=== PATIENT | male | born 1950 | race Caucasian/White ===

== ENCOUNTER 2017-11-23 10:15 | Inpatient (IN) | payer MEDICARE, BC ==
[2017-11-23 10:41] LABS: #Eosinphils 0.1 thou/uL (0.0-0.7); #Lymphocytes 1.9 thou/uL (1.20-3.40); #Monocytes 0.5 thou/uL (0.11-0.59); #Neutrophils 5.3 thou/uL (1.40-6.50); %Basophils 0.1 % (0.0-1.0); %Eosinophils 1.3 % (0.0-10.0); %Lymphocytes 24.2 % (21.0-51.0); %Monocytes 6.9 % (0.0-10.0); %Neutrophils 67.5 % (42.0-75.0); Hemoglobin 15.4 g/dL (14.0-18.0); Mean Corpuscular HGB CONC 33.9 g/dL (32.0-36.0); Mean Corpuscular Hemoglobin 29.3 pg (27.0-31.0); Mean Corpuscular Volume 86.3 fl (80.0-94.0); Platelet Count 183 thou/uL (130-400); RBC Distribution Width 13.1 % (11.5-14.5); Red Blood Cell (RBC) Count 5.27 mill/uL (4.70-6.10); White Blood Cell (WBC) Count 7.8 thou/uL (4.8-10.8)
[2017-11-23 10:47] LABS: INR-International Normal Ratio 1.1; Prothrombin Time 14.8 SEC (12.0-14.7)
[2017-11-23 10:48] LABS: PTT 38.1 SEC (22.9-36.1)
[2017-11-23 11:03] LABS: ALT (SGPT) 39 U/L (8-55); AST (SGOT) 30 U/L (5-34); Albumin 4.3 g/dL (3.4-4.8); Alkaline Phosphatase 80 U/L (40-150); Anion Gap 12 mmol/L (10-20); BUN (Urea Nitrogen) 15 mg/dL (8.4-25.7); Bilirubin, Total 0.5 mg/dL (0.2-1.2); CK (CPK) 223 U/L (30-200); Calc. Creatinine Clearance 0 mL/min (70-130); Calcium 9.4 mg/dL (7.8-10.44); Carbon Dioxide 23 mmol/L (23-31); Chloride 108 mmol/L (98-107); Estimated GFR-MDRD Greater than 90; Globulin 3.5 g/dL (2.4-3.5); Glucose 116 mg/dL (80-115); Protein, Total 7.8 g/dL (5.8-8.1); Sodium 139 mmol/L (136-145)
[2017-11-23 11:08] LABS: CKMB 2.5 ng/mL (0-6.6); Troponin I Less than 0.010 ng/mL (< 0.028)
[2017-11-23] MEDS ORDERED: Metoprolol Tartrate 5 MG/5 ML VIAL ONE (11:29)
--- NOTE | 2017-11-23 11:50 | RAD ---
PORTABLE CHEST 1 VIEW: Date: 11/23/17 Time: 1115 hours HISTORY: Chest pain. FINDINGS: The heart size is normal. The lungs are expanded without focal areas of consolidation, pneumothorax, or pleural effusion. IMPRESSION: No radiographic evidence of acute cardiopulmonary process. POS: [facility]
--- NOTE | 2017-11-23 14:50 | PDOC.FPRHP ---
- History of Present Illness Chief Complaint: heart "flutter" History of Present Illness: 67 yo M w/ PMH of cad s/p stent x2, hld, htn and recently diagnosed atrial fibrillation presents to the ED for feeling of heart palpitations since this morning. He was recently started on eliquis 5mg BID and diltiazem 240mg ER for the a-fib and has been taking those medications as scheduled. Currently, he c/o heart palpitations, but denies cp, sob, nvdc, diaphoresis, headache, changes in vision, lightheadedness, fever and chills. He is visiting from [facility] with his and sees a PCP and fitness center attendant in that area. Last PO intake was 199911/22/2017. ED Course: Lopressor 5mg - Allergies/Adverse Reactions Allergies Allergy/AdvReac Type Severity Reaction Status Date / Time mirtazapine Allergy Verified 11/23/17 14:51 naproxen Allergy Verified 11/23/17 14:51 - Home Medications Medication Instructions Recorded Confirmed Type ALPRAZolam [ALPRAZolam] 11/23/17 History Apixaban [Eliquis] 5 mg PO BID 11/23/17 11/23/17 History Aspirin [Ecotrin] 81 mg PO DAILY 11/23/17 11/23/17 History Cholecalciferol (Vitamin D3) 1,000 unit PO DAILY 11/23/17 11/23/17 History [Vitamin D3] Diltiazem HCl [Diltiazem 24Hr Cd] 240 mg PO DAILY 11/23/17 11/23/17 History Escitalopram Oxalate [Lexapro] 20 mg PO DAILY 11/23/17 11/23/17 History Fenofibrate 160 mg PO DAILY 11/23/17 11/23/17 History Multivitamin [Multivitamins] 1 cap PO DAILY 11/23/17 11/23/17 History [place]-3 Fatty Acids/Fish Oil [Fish 1 cap PO DAILY 11/23/17 11/23/17 History Oil 1,000 mg Capsule] Omeprazole 20 mg PO DAILY 11/23/17 11/23/17 History Pravastatin Sodium [Pravachol] 40 mg PO HS 11/23/17 11/23/17 History traZODone HCl [Desyrel] 12.5 mg PO HS 11/23/17 11/23/17 History - History PMHx: a-fib, CAD s/p stents X2, htn, hld, GERD PSHx: b/l knee replacement, rt rotator cuff repair, b/l hernia repair, rt ear reconstruction FHx: CAD/TX in Dad and brother Social:Non-smoker, social drinker. - Review of Systems General: denies: fever/chills, fatigue Eyes: denies: eye pain, vision changes ENT: denies: nasal congestion, rhinorrhea Respiratory: denies: cough, congestion, shortness of breath Cardiovascular: reports: palpitation. denies: chest pain, edema, paroxysmal nocturnal dyspnea Gastrointestinal: denies: nausea, vomiting, diarrhea, constipation, abdominal pain Genitourinary: denies: dysuria, polyuria Skin: denies: rashes, jaundice Musculoskeletal: denies: pain, tenderness Neurological: reports: numbness. denies: syncope Psychological: denies: anxiety - Vital signs BP: 123/85 HR: 67-121 RR: 20 Tmax: 98.4 Pox: 95% on RA Wt: 110Kg - Physical Exam Constitutional: NAD HEENT: normocephalic and atraumatic, EOMI, conjunctiva clear, grossly normal vision Neck: trachea midline, no LAD, no JVD, no thyromegaly Chest: no-tender to palpation Heart: normal S1/S2, pulses present -Heart: regular rate, irregular rhythm Lungs: CTAB, no respiratory distress, good air movement, no rales/rhonchi, no wheezing, no retractions Abdomen: soft, non-tender, bowel sounds present, no masses/distention Musculoskeletal: normal tone, ROM grossly normal Neurological: no focal deficit Skin: no rash/lesions, capillary refill <2 seconds Heme/Lymphatic: no unusual bruising or bleeding, no purpura, no petechia Psychiatric: normal mood and affect FMR H&P: Results - Labs Result Diagrams: 11/23/17 10:30 11/23/17 10:30 Lab results: WBC 7.8 thou/uL (4.8-10.8) 11/23/17 10:30 Hgb 15.4 g/dL (14.0-18.0) 11/23/17 10:30 Hct 45.5 % (42.0-52.0) 11/23/17 10:30 MCV 86.3 fl (80.0-94.0) 11/23/17 10:30 Plt Count 183 thou/uL (130-400) 11/23/17 10:30 Neutrophils % 67.5 % (42.0-75.0) 11/23/17 10:30 Sodium 139 mmol/L (136-145) 11/23/17 10:30 Potassium 4.0 mmol/L (3.5-5.1) 11/23/17 10:30 Chloride 108 mmol/L (98-107) H 11/23/17 10:30 Carbon Dioxide 23 mmol/L (23-31) 11/23/17 10:30 BUN 15 mg/dL (8.4-25.7) 11/23/17 10:30 Creatinine 0.83 mg/dL (0.6-1.3) 11/23/17 10:30 Glucose 116 mg/dL (80-115) H 11/23/17 10:30 Calcium 9.4 mg/dL (7.8-10.44) 11/23/17 10:30 Total Bilirubin 0.5 mg/dL (0.2-1.2) 11/23/17 10:30 AST 30 U/L (5-34) 11/23/17 10:30 ALT 39 U/L (8-55) 11/23/17 10:30 Alkaline Phosphatase 80 U/L (40-150) 11/23/17 10:30 Creatine Kinase 223 U/L (30-200) H 11/23/17 10:30 CK-MB (CK-2) 2.5 ng/mL (0-6.6) 11/23/17 10:30 Serum Total Protein 7.8 g/dL (5.8-8.1) 11/23/17 10:30 Albumin 4.3 g/dL (3.4-4.8) 11/23/17 10:30 - EKG Interpretation EKG: a-fib with RVR; rate 121 - Radiology Interpretation Chest x-ray Status: report reviewed by me Additional comment: No acute cardiopulmonary disease FMR H&P: A/P - Problem List (1) Atrial fibrillation with RVR Current Visit: Yes Status: Acute Code(s): I48.91 - UNSPECIFIED ATRIAL FIBRILLATION (2) Coronary artery disease Current Visit: Yes Status: Acute Code(s): I25.10 - ATHSCL HEART DISEASE OF [place] CORONARY ARTERY W/O ANG PCTRS (3) HTN (hypertension) Current Visit: Yes Status: Acute Code(s): I10 - ESSENTIAL (PRIMARY) HYPERTENSION (4) HLD (hyperlipidemia) Current Visit: Yes Status: Acute Code(s): E78.5 - HYPERLIPIDEMIA, UNSPECIFIED (5) Anxiety and depression Current Visit: Yes Status: Acute Code(s): F41.9 - ANXIETY DISORDER, UNSPECIFIED; F32.9 - MAJOR DEPRESSIVE DISORDER, SINGLE EPISODE, UNSPECIFIED (6) Insomnia Current Visit: Yes Status: Acute Code(s): G47.00 - INSOMNIA, UNSPECIFIED - Plan 1) Afib w/ rvr: -currently the pts rate is well controlled in the 60s to 80s. He has not eaten since last night and the plan per the ER doc checkout was possible GARRY with cardioversion by cardiology. Will keep pt NPO for now and touch base with cards for recs and possible procedure timing. If procedure is tomorrow pt can have HH diet and made NPO at midnight. Until then, we will resume home medications in the AM and focus on rate control with ideal <85 bpm since pt is symptomatic. Esmolol if necessary for rate control. -pt will be admitted to telemetry w/ expected LOS >/= 2 days 2) HTN: Currently BP stable, monitor 3) HLD: Will be NPO, can resume meds once procedure timing is figured out 4) Anxiety/depression: Home meds 5) CAD: Aspirin statin pending above 6) Insomnia: trazadone qhs 7) PPX: Eliquis and omeprazole 8) Code status: Spoke with pt regarding code status and he wishes to be full code. Disposition/LOS: >/= 2 days. Stable. FMR H&P: Upper Level - Pertinent history 67 y/o M w/ PMHx of CAD s/p stent x2 and recent diagnosis of A-fib 3 weeks ago s /p spontaneous conversion presents to the ER for evaluation of palpitations. Pt reportedly diagnosed 3 weeks ago in [place] w/ plans for cardioversion, but converted upon standing up and using the urinal in the ER prior to the procedure. He was started on diltiazem at this time. Denies any CP/SOB/ lightheadedness/change in vision/syncope. Took his dilt this AM. Pt reportedly attempted to convert himself back to NS by performing deep breathing but was unable to have resolution of his sxs prompting ER visit. Pt states he has not eaten since 1999 last night. Pt states his sxs are much improved now that his heart rate is slower. Patient is a FULL CODE. This was discussed in detail with patient and his . Pt was given 5 mg IV Lopressor in the ER w/ improvement in his pulse from 130s to 80s. Dr. Ro of cardiology was consulted who recommended admission for cardioversion. - Pertinent findings EKG showing A-fib w/ RVR rate 121 bpm Cardiac: irregularly irregular rate/rhythm Othewise exam grossly WNL - Plan Date/Time: 11/23/17 1446 67 y/o M w/: 1. Atrial fibrillation with RVR, currently rate controlled -Will contact cardiology to see if patient can have GARRY and cardioversion later on this afternoon 2/2 already being NPO - Currently rate controlled s/p 5 mg IV Lopressor. Will plan to restart PO dilt he was previously discharged home on w/ esmolol gtt if needed for continued rate control - Cont. eliquis for anticoagulation 2.CAD s/p stent x2 - Cont. w/ ASA, CCB, and statin medication 3. HLD - Cont. w/ home pravastatin 4. Depression - Cont. w/ home lexapro 5. Insomnia - Cont. w/ home trazadone PRN 6. GERD - Cont. w/ home omeprazole IWilder, have evaluated this patient and agree with findings/plan as outlined by international travel consultant resident. Pertinent changes/additions are listed here. Attending Addendum - Attending Addendum Date/Time: 11/23/17 7227 I personally evaluated the patient and discussed the management with Dr. Dunaway I agree with the History, Examination, Assessment and Plan documented above with any addition or exceptions noted below- Briefly this is a 67 year old WF with h/o recently diagnosed a-fib. He states that he developed palpitations and was hospitalized in [place]. He converted to sinus rhythm and was started on eliquis and diltiazem after follow-up his fitness center attendant. Today he developed palpitations again and presented to the ER. Denies any CP, SOB, N/V. Currently feels better. PMH/PSH/ALL/Meds/SH reviewed and agree with resident's documentation. PE: Afebrile P99 BP 125/89 Exam repeated by me and agree with resident's documentation Labs: cardiac enzymes negative x 3 EKG a-fib A/P: A-Fib with RVR now rate controlled- continue current meds. Cardiology consulted and planning for GARRY in AM.
[2017-11-23] MEDS ORDERED: Ondansetron HCl/PF 4 MG/2 ML Vial IVP PRN (16:14)
[2017-11-23] MEDS ORDERED: Ondansetron ODT 4 MG TAB PO PRN (16:14)
[2017-11-23] MEDS ORDERED: Acetaminophen 325 MG TAB PO PRN (16:14)
[2017-11-23 16:51] VITALS: BMI 34.2
--- NOTE | 2017-11-23 17:58 | CON ---
DATE OF CONSULTATION: 11/23/2017 REASON FOR CONSULTATION: Atrial fibrillation, rapid ventricular response. HISTORY OF PRESENT ILLNESS: Mr. San is a pleasant 67-year-old white gentleman [facility]. He was seen in the ER and found to have atrial fibrillation and RVR and he w as admitted for this. He has a history of atrial fibrillation. Three weeks ago, he went into atrial fibrillation and had to go to the ER as he becomes very symptomatic when he is in atrial fibrillatio n. During his ER stay, he converted back to sinus rhythm on his own. 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 He was started on diltiazem 240 mg a day at his cardiologis t visit for paroxysmal atrial fibrillation and kept on the Eliquis. He is actually seen by cardiolog ist in [facility] where he has lived for several years now secondary to having had an KS back in 2003. He had 2 stents placed at that time, he has followed up with him every year. He has had several stress tests and several echocardiograms that have shown normal LV function and he has never had a repeat c atheterization. He was placed in the telemetry floor and he has remained in atrial fibrillation, hea rt rate in the 60s-70s after an IV dose of metoprolol. Currently, he is not feeling as bad as he was before, but he continues to feel the fluttering of his chest. PAST MEDICAL HISTORY: 1. Atrial fibrillation diagnosed 3 weeks ago. 2. Coronary artery disease status post stents x2 back in 2003 in the setting of myocardial infarctio n. 3. Hypertension. 4. Hyperlipidemia. 5. Gastroesophageal reflux disease. PAST SURGICAL HISTORY: 1. Bilateral knees replaced. 2. Right rotator cuff repair. 3. Bilateral hernia repair. 4. Right ear reconstruction. FAMILY HISTORY: Coronary artery disease, [place] in both father and brother. SOCIAL HISTORY: No alcohol, tobacco or drugs. REVIEW OF SYSTEMS: A 12-point review of systems was done and is otherwise negative unless stated in history of present illness. TRANSFER MEDICATIONS: 1. Vitamin D3. 2. Multivitamin daily. 3. [place] 3 fish oil. 4. Omeprazole. 5. Diltiazem 240 mg a day. 6. Fenofibrate 150 mg a day. 7. Lexapro 20 mg a day. 8. Eliquis 5 mg p.o. b.i.d. 9. Trazodone 12.5 mg at bedtime. 10. Pravastatin 40 mg at bedtime. 11. Aspirin 81 a day. 12. Alprazolam p.r.n. ALLERGIES: MIRTAZAPINE and NAPROXEN. PHYSICAL EXAMINATION: VITAL SIGNS: Temperature 98.1, pulse 99, respiration rate 16, satting 95% on room air, blood pressur e 125/72. GENERAL: Awake, alert, oriented x3, in no distress. HEENT: Normocephalic, atraumatic. NECK: Supple. LUNGS: Lungs are clear. CARDIOVASCULAR: Irregularly irregular heart rate in the 70s. S1, S2, no S3 or S4, no murmurs or rub s. ABDOMEN: Soft, positive bowel sounds. EXTREMITIES: No edema. SKIN: Warm and dry. LABORATORY WORK: Reviewed. CBC was unremarkable. Coags were unremarkable. Chemistries were unrema rkable. GFR greater than 90. Troponin is negative x2. CK-MB is normal x1. Albumin of 4.3. EKG was reviewed, AFib, RVR. Telemetry was reviewed. Currently, still in atrial fibrillation, but rate controlled in the 70s-80s. Chest x-ray shows no acute cardiopulmonary issues. ASSESSMENT AND PLAN: 1. Atrial fibrillation and rapid ventricular response. 2. Coronary artery disease, stable. No acute coronary syndrome. 3. Hypertension. 4. Hyperlipidemia. PLAN: 1. We will start Multaq. There is an interaction with possible QT prolongation with escitalopram an d trazadone and so we will stop trazodone for now. Hopefully, he will be able to be off without issu es. We will plan on continuing Eliquis and plan on doing a GARRY cardioversion tomorrow morning if he remains in atrial fibrillation. 2. Echocardiogram to be done. 3. GARRY cardioversion tomorrow as long as he remains in atrial fibrillation. I explained to him at [facility] about the risks and benefits of the procedure and he agrees to proceed. Further recommendations per results of echocardiogram and further telemetry monitoring. We will follow up in the morning. Thank you for letting us to participate in the care of your patient.
[2017-11-23] MEDS ORDERED: Dronedarone HCl 400 MG TAB PO SCH (18:00)
[2017-11-23 18:22] LABS: Troponin I Less than 0.010 ng/mL (< 0.028)
[2017-11-23] MEDS: Apixaban 5 MG TAB PO SCH (20:28)
[2017-11-23] MEDS ORDERED: traZODone HCl 50 MG TAB PO SCH (21:00)
[2017-11-23] MEDS ORDERED: Atorvastatin Calcium 10 MG TAB PO SCH (21:00)
[2017-11-24 05:46] LABS: #Basophils 0.1 thou/uL (0.0-0.2); #Eosinphils 0.1 thou/uL (0.0-0.7); #Lymphocytes 2.1 thou/uL (1.20-3.40); #Monocytes 0.5 thou/uL (0.11-0.59); #Neutrophils 3.6 thou/uL (1.40-6.50); %Basophils 1.1 % (0.0-1.0); %Eosinophils 2.2 % (0.0-10.0); %Lymphocytes 32.5 % (21.0-51.0); %Neutrophils 56.1 % (42.0-75.0); Mean Corpuscular HGB CONC 33.2 g/dL (32.0-36.0); Mean Corpuscular Hemoglobin 28.8 pg (27.0-31.0); Mean Corpuscular Volume 86.9 fl (80.0-94.0); Mean Platelet Volume 7.2 fL (7.4-10.4); Platelet Count 193 thou/uL (130-400); RBC Distribution Width 13.1 % (11.5-14.5); White Blood Cell (WBC) Count 6.5 thou/uL (4.8-10.8)
[2017-11-24 05:53] LABS: Anion Gap 13 mmol/L (10-20); BUN (Urea Nitrogen) 14 mg/dL (8.4-25.7); Calc. Creatinine Clearance 131 mL/min (70-130); Calcium 9.1 mg/dL (7.8-10.44); Carbon Dioxide 22 mmol/L (23-31); Chloride 105 mmol/L (98-107); Estimated GFR-MDRD Greater than 90; Glucose 94 mg/dL (80-115); Potassium 3.8 mmol/L (3.5-5.1); Sodium 136 mmol/L (136-145)
[2017-11-24] MEDS ORDERED: Dronedarone HCl 400 MG TAB PO SCH (08:00)
[2017-11-24] MEDS ORDERED: Escitalopram Oxalate 20 mg Tablet PO SCH (09:00)
[2017-11-24] MEDS ORDERED: Fenofibrate Nanocrystallized 145 MG TAB PO SCH (09:00)
--- NOTE | 2017-11-24 09:05 | PDOC.FM ---
- Subjective Subjective: LARISSA overnight, VSS. A-fib rate controlled overnight on telemetry. Pt states going for cardioversion today w/ Cards. No new complaints. VSS, afebrile - Objective MAR Reviewed: Yes Vital Signs & Weight: Vital Signs (12 hours) Temp Pulse Resp BP Pulse Ox 11/24/17 07:18 98.2 F 105 H 18 119/72 95 11/24/17 04:00 98.0 F 96 14 110/63 94 L I&O: 11/23/17 11/24/17 11/25/17 06:59 06:59 06:59 Intake Total 200 Balance 200 Result Diagrams: 11/24/17 04:01 11/24/17 04:01 <Dennys Amezquita - Last Filed: 11/24/17 09:07> - Objective Vital Signs & Weight: Vital Signs (12 hours) Temp Pulse Resp BP Pulse Ox 11/24/17 07:18 98.2 F 105 H 18 119/72 95 11/24/17 04:00 98.0 F 96 14 110/63 94 L I&O: 11/23/17 11/24/17 11/25/17 06:59 06:59 06:59 Intake Total 200 Balance 200 Result Diagrams: 11/24/17 04:01 11/24/17 04:01 <Piter Armenta - Last Filed: 11/24/17 10:21> Phys Exam - Physical Examination Constitutional: NAD HEENT: PERRLA, moist MMs Respiratory: no wheezing, clear to auscultation bilateral Cardiovascular: no significant murmur irregularly irregular Gastrointestinal: soft, non-tender, no distention Musculoskeletal: pulses present Neurological: moves all 4 limbs Lymphatic: no nodes Psychiatric: normal affect, A&O x 3 <Dennys Amezquita - Last Filed: 11/24/17 09:07> Dx/Plan (1) Atrial fibrillation with RVR Code(s): I48.91 - UNSPECIFIED ATRIAL FIBRILLATION Status: Acute Plan: Plans for cardioversion this AM Pt already started on multaq for anti-arrythmic per cardiology Cont. w/ eliquis HAS-BLED 2 CHADsVASC 2 Likely d/c home this afternoon pending cardioversion (2) Coronary artery disease Code(s): I25.10 - ATHSCL HEART DISEASE OF [place] CORONARY ARTERY W/O ANG PCTRS Status: Acute Plan: Cont. w/ statin, ASA, and CCB (3) HTN (hypertension) Code(s): I10 - ESSENTIAL (PRIMARY) HYPERTENSION Status: Acute Plan: Stable, cont. w/ home regimen (4) HLD (hyperlipidemia) Code(s): E78.5 - HYPERLIPIDEMIA, UNSPECIFIED Status: Acute Plan: Cont. w/ home meds stable (5) Anxiety and depression Code(s): F41.9 - ANXIETY DISORDER, UNSPECIFIED; F32.9 - MAJOR DEPRESSIVE DISORDER, SINGLE EPISODE, UNSPECIFIED Status: Acute Plan: Cont. w/ home lexapro Stable (6) Insomnia Code(s): G47.00 - INSOMNIA, UNSPECIFIED Status: Acute Plan: trazadone held per cards 2/2 QT prolongation alongside lexapro and w/ addition of multaq concern for pro-arrythic effects Will start patient on melatonin <Dennys Amezquita - Last Filed: 11/24/17 09:07> Attending Addendum - Attending Addendum Date/Time: 11/24/17 1010 I personally evaluated the patient and discussed the management with Dr. Amezquita. I agree with the History, Examination, Assessment and Plan documented above with any addition or exceptions noted below. 67M with recent diagnosis of A-fib approximately 3 weeks ago who presented to ER in a-fib RVR. He has been rate controlled after one dose of Lopressor. Cardiology consulted and patient will undergo GARRY with cardioversion today. Started on PO Diltiazem and Multaq yesterday. Anticoagulated with Eliquis. <Piter Armenta - Last Filed: 11/24/17 10:21>
[2017-11-24] MEDS: Apixaban 5 MG TAB PO SCH (10:08)
[2017-11-24 10:50] LABS: Hemoglobin 15.4 g/dL (14.0-18.0); Platelet Count 205 thou/uL (130-400)
[2017-11-24 11:36] VITALS: BP 124/68; TEMP 98.7
--- NOTE | 2017-11-27 15:06 | DIS-2 ---
DATE OF ADMISSION: 11/23/2017 DATE OF DISCHARGE: 11/24/2017 ADMITTING ATTENDING: Minnie Salinas M.D. DISCHARGE ATTENDING: Piter Armenta M.D. RESIDENT: Dennys Amezquita M.D. CONSULTATIONS: Cardiology, Cole Ro M.D. PROCEDURES PERFORMED: Transesophageal echocardiogram and cardioversion. PRIMARY DIAGNOSIS: Paroxysmal atrial fibrillation with rapid ventricular response. SECONDARY DIAGNOSES: 1. Normal coronary artery disease, status post stent x2. 2. Hypertension. 3. Hyperlipidemia. 4. Anxiety. 5. Depression. 6. Insomnia. DISCHARGE MEDICATIONS: 1. Multaq 400 mg p.o. b.i.d. with meals. 2. Pravastatin 40 mg p.o. at bedtime. 3. Aspirin 81 mg p.o. q. day. 4. Fenofibrate 160 mg p.o. q. day. 5. Citalopram 20 mg p.o. q. day. 6. Eliquis 5 mg p.o. b.i.d. 7. Omeprazole 20 mg p.o. q. day. 8. Diltiazem HCL 240 mg p.o. daily. 9. Multivitamin 1 cap p.o. daily. 10. [place] 3 fatty acid fish oil 1 cap p.o. q. day. 11. Vitamin D3 1000 units p.o. q. day. DISCHARGE DISCONTINUED MEDICATIONS: Trazodone 25 mg p.o. at bedtime. HISTORY OF PRESENT ILLNESS AND HOSPITAL COURSE: The patient is a pleasant 67- year-old male with recent diagnosis of atrial fibrillation approximately 3 weeks ago. He was evaluated at the hospital ER in [place], [place], where he was able to vagal himself back into sinus rhythm while urinating in the ER. No cardioversion was performed at this time. He was started on Eliquis and diltiazem by day camp counselor around the time of initial diagnosis. The patient was currently out of town for a convention with his . The patient states he began to have this fluttering feeling in his chest and attempted to convert himself unsuccessful prompting ER visit. The patient was found to be in atrial fibrillation with RVR upon presentation to the emergency room at [place]. He was given 1 dose of IV Lopressor 5 mg, which seemed to control his rate. Dr. Ro of Cardiology was consulted and with plans for GARRY and cardioversion the next morning. PT, PTT and INR were checked, which were at levels expected while being on Eliquis b.i.d. GARRY was performed without evidence of clot in the atrium and cardioversion was subsequently performed, which was successful in converting the patient back in sinus rhythm. The patient was started on Multaq prior to conversion, which he will continue per Cardiology recommendations. The patient was discharged on home medications except trazodone secondary to concern for QT prolongation in the setting of Multaq use , which could be a proarrhythmic issue with this medication. DISPOSITION: Stable. DISCHARGE INSTRUCTIONS: 1. Location: Home. 2. Followup: Follow up with primary care provider and day camp counselor in 7-10 days. 3. Activity: Cardiopulmonary limits. MTDD
--- NOTE | 2017-12-06 15:06 | EKG ---
Test Reason : Blood Pressure : / mmHG Vent. Rate : 125 BPM Atrial Rate : 138 BPM P-R Int : 000 ms QRS Dur : 090 ms QT Int : 290 ms P-R-T Axes : 000 -03 -10 degrees QTc Int : 418 ms Atrial fibrillation with rapid ventricular response with premature ventricular or aberrantly conducte d complexes Nonspecific ST abnormality Abnormal ECG Confirmed by ISHAN ROBERTS ([id number]), brands editor LOREN TUCKER ([id number]) on 12/06/2017 3:05:25 PM Referred By: Confirmed By:ISHAN ROBERTS
== END 2017-11-24 13:37 | disposition home or self-care (01) | DRG 310 ==
LOC: ERS 10:15 → 2SW 15:52 → OBSVTOIN 16:14
PROVIDERS: ADMIT Student in an Organized Health Care Education/Training Program; ATTEND Student in an Organized Health Care Education/Training Program
DX: I48.0 Paroxysmal atrial fibrillation (principal); E78.5 Hyperlipidemia, unspecified; I10 Essential (primary) hypertension; I25.10 Atherosclerotic heart disease of native coronary artery without angina pectoris; Z95.5 Presence of coronary angioplasty implant and graft; Z53.09 Procedure and treatment not carried out because of other contraindication; F41.9 Anxiety disorder, unspecified; F32.9 Major depressive disorder, single episode, unspecified; G47.00 Insomnia, unspecified; Z79.01 Long term (current) use of anticoagulants; K21.9 Gastro-esophageal reflux disease without esophagitis
CPT/HCPCS: 36415; 71045; 80048; 80053; 82553; 84484; 85025; 85610; 85730; 93005; 94760; 96374